=== PATIENT | male | born 1990 | race Caucasian/White ===

== ENCOUNTER 2017-03-31 08:44 | Emergency (ER) | payer OTHER ==
[~2017-03-31] VITALS: Ht 177.8 cm; Wt 75.0 kg
[~2017-03-31 08:44] MED LIST: CEPH-507 PO; HYDR-3754 PO; KETO10TA55 PO
--- OUTSIDE RECORDS SUMMARY | 2017-03-31 08:52 | XMS REPORT | Summary of Care ---
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 Quantity: 30 Refills: 0 Clarence Nadira Start Active Allergies and Adverse Reactions Name Dates Details No Known Drug Allergies (Allergy) Status: Active Procedures Procedure Dates Details Procedures not documented Immunization Name Dates Details Immunizations not documented Social History Name Dates Details - Status: Name Dates Details Smoker. current status unknown Vital Signs Date Test Result Details 07:55 BP Systolic 151 mm[Hg] Status: Comments: Location: ; Position: BP Diastolic 78 mm[Hg] Status: Comments: Location: ; Position: Temperature 99 f Status: Comments: Method: Heart Rate 58 /min Status: Comments: Location: ; Weight 161 lb Status: Physical Findings 99 Status: Comments: O2 Saturation Results Date Description Value Details Results not documented Plan of Care Name Dates Details Planned Observations Planned Goals not documented Interventions Provided Medication ChangesAmoxicillin 500 MG Oral Tablet - Start Instructions Name Dates Details Instructions not documented Encounters Appointment; Nadira Lima Encounter Diagnosis: Problem not documented On 08:00
[2017-03-31 09:16] LABS: BILIRUBIN,URINE Negative (Negative); CLARITY,URINE Clear; COLOR,URINE Yellow; GLUCOSE, URINE (UA) Negative (Negative); LEUKOCYTE ESTERASE ,URINE Negative (Negative); UROBILINOGEN,URINE 0.2 mg/dL (0.2-1.0)
[2017-03-31] MEDS ORDERED: KETOROLAC 30 MG/ML (TORADOL) 1 ML VIAL IV ONE (09:20)
[2017-03-31] MEDS ORDERED: ONDANSETRON 2 MG/ML (Z0FRAN) 2 ML VIAL IV ONE (09:20)
[2017-03-31 09:26] LABS: AMPHETAMINE SCREEN, URINE Negative (Negative); CANNABINOID SCREEN, URINE Positive (Negative); METHAMPHETAMINE SCREEN URINE S NEGATIVE (NEGATIVE); OPIATE SCREEN URINE Negative (Negative); PROPOXYPHENE STAT NEGATIVE (NEGATIVE)
[2017-03-31 09:37] LABS: BASOPHILS % (AUTO) 1 % (0-2); EOSINOPHILS # (AUTO) 0.1 10^3uL; EOSINOPHILS % (AUTO) 1 % (0-4); LYMPHOCYTES # (AUTO) 1.3 X10^3; MEAN CORPUSCULAR HEMOGLOBIN 31.7 PG (26.0-34.0); MEAN CORPUSCULAR HGB CONC 35.3 g/dL (31.0-37.0); MEAN CORPUSCULAR VOLUME 90 FL (80-100); MEAN PLATELET VOLUME 10.1 FL (6.0-9.5); MONOCYTES # (AUTO) 0.5 X10^3; MONOCYTES % (AUTO) 8 % (3-11); NEUTROPHILS # (AUTO) 5.2 X10^3; NEUTROPHILS % (AUTO) 73 % (51-67); PLATELET COUNT 234 10^3uL (150-450); WHITE BLOOD COUNT 7.16 10^3uL (4.0-11.0)
[2017-03-31 10:05] LABS: ALBUMIN 4.5 g/dL (3.4-5.0); ALKALINE PHOSPHATASE 76 U/L (38-126); AMYLASE* 76 U/L (25-115); ANION GAP 13.2 MEQ/L (3-15); BUN/CREATININE RATIO 12 (10-20); CALCULATED IONIZED CALCIUM 3.9 mg/dL (3.8-4.6); LIPASE* 73 U/L (23-300); TOTAL PROTEIN 7.9 g/dL (6.4-8.5)
[2017-03-31 10:37] VITALS: BP 141/84
[2017-03-31] MEDS ORDERED: HYDROmorphone 1 MG/ML (DILAUDID) SYRINGE IV ONE (10:40)
--- NOTE | 2017-03-31 10:44 | Diagnostic Imaging Report ---
INDICATION: Abdominal pain. EXAM: Abdominal series. FINDINGS: The lungs are clear. The heart and vessels are normal. There is no effusion or pneumothorax. There is no pathological fecal loading. No air-fluid levels. No free gas, no significant bowel dilatation. There is a pelvic phlebolith noted as well as probable bone island or a phlebolith projecting over the right sacral ala. No convincing evidence for urolithiasis. IMPRESSION: No acute-appearing abnormality. Dictated by: Dictated on workstation # [id number]
== END 2017-03-31 10:43 | disposition home or self-care (01) ==
LOC: EDUNIT# 08:44 → ED 08:48
DX: R10.13 Epigastric pain (principal); F12.10 Cannabis abuse, uncomplicated
CPT/HCPCS: 36415; 74022; 80053; 80307; 81003; 82150; 83690; 85025; 86140; 96374; 96375; 99283; J1885; J2405; J7030